=== PATIENT | male | born 1990 | race African-American/Black ===

== ENCOUNTER 2018-10-21 16:05 | Emergency (ER) | payer SELFPAY ==
[~2018-10-21] VITALS: Ht 177.8 cm; Wt 90.7 kg
[2018-10-21 16:33] VITALS: BP 186/88
[2018-10-21] MEDS ORDERED: ALBU2.5V8 INH (16:47)
[2018-10-21] MEDS ORDERED: PRED15SO3 PO (16:47)
[2018-10-21] MEDS ORDERED: GUAI180L4 PO (16:47)
--- NOTE | 2018-10-21 16:47 | PHYS DOC ---
Past Medical History Past Medical History: No Pertinent History Past Surgical History: No Surgical History Alcohol Use: None Drug Use: None Adult General Chief Complaint Chief Complaint: COUGH HPI HPI Patient is a 27 year old male who presents to the ED today complaining of a productive cough for 3 days. Patient denies any fever. Denies any nasal congestion. Review of Systems Review of Systems Constitutional: Denies fever or chills [] Eyes: Denies change in visual acuity, redness, or eye pain [] HENT: Denies nasal congestion or sore throat [] Respiratory: Reports: Denies shortness of breath [] Cardiovascular: No additional information not addressed in HPI [] GI: Denies abdominal pain, nausea, vomiting, bloody stools or diarrhea [] : Denies dysuria or hematuria [] Musculoskeletal: Denies back pain or joint pain [] Integument: Denies rash or skin lesions [] Neurologic: Denies headache, focal weakness or sensory changes [] Endocrine: Denies polyuria or polydipsia [] All other systems were reviewed and found to be within normal limits, except as documented in this note. Allergies Allergies Allergies Coded Allergies Type Severity Reaction Last Updated Verified No Known Drug Allergies 10/17/13 No Physical Exam Physical Exam Constitutional: Well developed, well nourished, no acute distress, non-toxic appearance. [] HENT: Normocephalic, atraumatic, bilateral external ears normal, oropharynx moist, no oral exudates, nose normal. [] Eyes: PERRLA, EOMI, conjunctiva normal, no discharge. [] Neck: Normal range of motion, no tenderness, supple, no stridor. [] Cardiovascular:Heart rate regular rhythm, no murmur [] Lungs & Thorax: Bilateral breath sounds clear to auscultation [] Abdomen: Bowel sounds normal, soft, no tenderness, no masses, no pulsatile masses. [] Skin: Warm, dry, no erythema, no rash. [] Back: No tenderness, no CVA tenderness. [] Extremities: No tenderness, no cyanosis, no clubbing, ROM intact, no edema. [] Neurologic: Alert and oriented X 3, normal motor function, normal sensory function, no focal deficits noted. [] Psychologic: Affect normal, judgement normal, mood normal. [] EKG EKG [] Radiology/Procedures Radiology/Procedures [] Course & Med Decision Making Course & Med Decision Making Pertinent Labs and Imaging studies reviewed. (See chart for details) This is a 27-year-old male patient presenting to the ED today with bronchitis. He was asking for liquid medication, he states he cannot take any liquids. He is currently on probation for drug use. Will be discharged with Delsym, prednisone and albuterol inhaler. Follow-up with PCP in one week. Dragon Disclaimer Dragon Disclaimer This electronic medical record was generated, in whole or in part, using a voice recognition dictation system. Departure Departure Impression: Primary Impression: Acute bronchitis Disposition: HOME, SELF-CARE Condition: STABLE Referrals: NO PCP (PCP) Follow-up with your doctor in one week Patient Instructions: Acute Bronchitis, [id number] Additional Instructions: You were evaluated in the emergency for acute bronchitis use the medicines ordered as prescribed. Follow-up with your doctor in one week. Scripts Prednisolone Sod Phosphate (PREDNISOLONE SODIUM PHOSPHATE) 15 Mg/5 Ml Solution 20 ML PO DAILY, #100 ML Prov: RAYMOND ECHOLS APRN 10/21/18 Guaifenesin/Dextromethorphan (Delsym Cough+Chest Cngst Dm Lq) 180 Ml Liquid 5 ML PO Q6HRS, #180 LIQUID Prov: RAYMOND ECHOLS APRN 10/21/18 Albuterol Sulfate (PROAIR HFA INHALER) 8.5 Gm Hfa.aer.ad 1 PUFF INH PRN Q6HRS PRN for SHORTNESS OF BREATH, #1 INHALER 0 Refills Prov: RAYMOND ECHOLS APRN 10/21/18 Problem Qualifiers Primary Impression: Acute bronchitis Bronchitis organism: unspecified organism Qualified Codes: J20.9 - Acute bronchitis, unspecified RAYMOND ECHOLS APRN Oct 21, 2018 16:47
== END 2018-10-21 17:03 | disposition home or self-care (01) ==
LOC: ER 16:05
DX: J20.9 Acute bronchitis, unspecified (principal)
CPT/HCPCS: 96361; 96372; 96374; 99283; 99284-25

== ENCOUNTER 2018-11-17 09:56 | Emergency (ER) | payer SELFPAY ==
[~2018-11-17] VITALS: Ht 180.3 cm; Wt 95.3 kg
[~2018-11-17 09:56] MED LIST: ALBU2.5V8 INH; GUAI180L4 PO; PRED15SO3 PO
[2018-11-17 10:54] VITALS: BP 156/96
--- NOTE | 2018-11-17 11:36 | RAD ---
Three-view right foot study Clinical indications: Pain involving the third digit. Patient stubbed toe. FINDINGS: No acute fracture or dislocation or lytic process is seen. IMPRESSION: No acute fracture. Electronically signed by: Reji Santana MD (11/17/2018 11:34 AM) [id number]
[2018-11-17] MEDS ORDERED: DICL50TA2 PO (12:27)
[2018-11-17] MEDS ORDERED: NYST15PO9 TP (12:27)
[2018-11-17] MEDS ORDERED: GABA600T7 PO (12:27)
--- NOTE | 2018-11-17 12:27 | PHYS DOC ---
Past Medical History Past Medical History: No Pertinent History Past Surgical History: No Surgical History Additional Information: BLACK & MILDS Alcohol Use: None Drug Use: None Adult General Chief Complaint Chief Complaint: INSECT BITE HPI HPI Patient is a 27 year old male patient who presents to the ED today with right third toe pain that began this morning when he woke up. Patient believes he could've stubbed his toe on something yesterday and slipped on it. He also believes he could've been bit by a spider though he never saw any spiders bit him. He describes the pain as throbbing worse on touching the toe. Denies any relieving factors. Review of Systems Review of Systems Constitutional: Denies fever or chills [] Musculoskeletal: Reports right third toe pain Integument: Denies rash or skin lesions [] Neurologic: Denies headache, focal weakness or sensory changes [] All other systems were reviewed and found to be within normal limits, except as documented in this note. Allergies Allergies Allergies Coded Allergies Type Severity Reaction Last Updated Verified No Known Drug Allergies 10/17/13 No Physical Exam Physical Exam Constitutional: Well developed, well nourished, no acute distress, non-toxic appearance. [] Skin: Warm, dry, no erythema, no rash. [] Back: No tenderness, no CVA tenderness. [] Extremities: No signs of trauma noted to the right third toe. Right third toe and all the toes with no obvious deformity. There is mild amount of ongoing infection in between his toes worse on the webspace between the right third toe.+2 right pedal pulse. Neurologic: Alert and oriented X 3, normal motor function, normal sensory function, no focal deficits noted. [] Psychologic: Affect normal, judgement normal, mood normal. [] Current Patient Data Vital Signs Vital Signs Date Time Temp Pulse Resp B/P (MAP) Pulse Ox O2 Delivery O2 Flow Rate FiO2 11/17/18 10:54 98.4 71 18 156/96 (116) 98 Room Air 98.4 EKG EKG [] Radiology/Procedures Radiology/Procedures []PROCEDURE: FOOT RIGHT 3V Three-view right foot study Clinical indications: Pain involving the third digit. Patient stubbed toe. FINDINGS: No acute fracture or dislocation or lytic process is seen. IMPRESSION: No acute fracture. Electronically signed by: Rajwinder Santana MD (11/17/2018 11:34 AM) [id number] DICTATED and SIGNED BY: RAJWINDER SANTANA MD DATE: 11/17/18 1134 Course & Med Decision Making Course & Med Decision Making Pertinent Labs and Imaging studies reviewed. (See chart for details) This is a 27-year-old male patient presenting to the ED today complaining of pain to the right third toe, no obvious known injury. He has his own hypothesis on what could be causing the pain, see history of present illness. On arrival to the ED x-ray was obtained of the right foot, no acute findings noted. Patient noted to have quite a bit of fungal infection between his toes. He was discharged with nystatin. Follow-up with PCP in 1-2 weeks. Dragon Disclaimer Dragon Disclaimer This electronic medical record was generated, in whole or in part, using a voice recognition dictation system. Departure Departure Impression: Primary Impression: Athlete's foot on right Disposition: 01 HOME, SELF-CARE Condition: STABLE Referrals: NO PCP (PCP) follow up in one week Patient Instructions: Athlete's Foot, [id number] Additional Instructions: You were evaluated in the emergency room and noted to have fungal infection between your toes. Use the medication prescribed as ordered. Consider applying this medication in your shoes. Keep your feet out of the shoes when you are home to allow the toes to air out. Your foot x-ray was negative for any acute findings. Follow-up with your own doctor in 1-2 weeks. Scripts Diclofenac Potassium (DICLOFENAC POTASSIUM) 50 Mg Tablet 1 TAB PO BID, #20 TAB 0 Refills Prov: RAYMOND ECHOLS APRN 11/17/18 Gabapentin (GABAPENTIN) 600 Mg Tablet 600 MG PO TID for NEUROGENIC PAIN, #30 TAB Prov: RAYMOND ECHOLS APRN 11/17/18 Nystatin (NYSTATIN) 15 Gm Powder 1 SARA TP BID, #1 BOTTLE Prov: RAYMOND ECHOLS APRN 11/17/18 RAYMOND ECHOLS APRN Nov 17, 2018 12:27
== END 2018-11-17 12:32 | disposition home or self-care (01) ==
LOC: ER 09:56
DX: B35.3 Tinea pedis (principal)
CPT/HCPCS: 73630; 99284

== ENCOUNTER 2018-11-19 12:09 | Emergency (ER) | payer SELFPAY ==
[~2018-11-19] VITALS: Ht 180.3 cm; Wt 95.3 kg
[~2018-11-19 12:09] MED LIST changes: +DICL50TA2 PO; +GABA600T7 PO; +NYST15PO9 TP
[2018-11-19 12:45] VITALS: BP 149/84
[2018-11-19] MEDS ORDERED: SMZ/TMP 800/160MG TABLET. PO ONE (13:15)
[2018-11-19] MEDS ORDERED: HYDROcodone/APAP 5/325MG 1 TAB TABLET PO ONE (13:15)
[2018-11-19] MEDS ORDERED: LIDOCAINE 1% PF 2 ML VIAL. INJ ONE (13:15)
[2018-11-19] MEDS ORDERED: DIPHTH,PERTUSS(ACELL),TET TOX 0.5 ML DISP.SYRIN. VAX IM ONE (13:15)
--- NOTE | 2018-11-19 13:25 | PHYS DOC ---
Past Medical History Past Medical History: No Pertinent History Past Surgical History: No Surgical History Alcohol Use: None Drug Use: None Adult General Chief Complaint Chief Complaint: TOE PROBLEM HPI HPI Patient is a 27 year old male who presents with infected right third toe, patient states he had a fungal infection to the area that has progressed into an abscess. He was in the ED 2 days ago and had an x-ray of the right foot which was negative for any acute findings. At that point he had athletes foot and was discharged with nystatin powder. He states the athletes foot has turned into a bacterial infection. He states he has pus draining out of the area. Denies any fever. Denies any history of diabetes. Review of Systems Review of Systems Constitutional: Denies fever or chills [] Musculoskeletal: Denies back pain or joint pain [] Integument: Reports infected third toe. Neurologic: Denies headache, focal weakness or sensory changes [] All other systems were reviewed and found to be within normal limits, except as documented in this note. Current Medications Current Medications Current Medications Medications (Trade) Dose Ordered Sig/Festus Start Time Stop Time Status Last Admin Dose Admin Acetaminophen/ Hydrocodone Bitart (Lortab 5/325) 2 tab 1X ONCE 11/19/18 13:15 11/19/18 13:16 DC Diphtheria/ Tetanus/Acell Pertussis (Boostrix) 0.5 ml ONCE ONCE 11/19/18 13:15 11/19/18 13:16 DC Lidocaine HCl (Xylocaine-Mpf 1% 2ml Vial) 2 ml 1X ONCE 11/19/18 13:15 11/19/18 13:16 DC Trimethoprim/ Sulfamethoxazole (Bactrim Ds) 1 tab 1X ONCE 11/19/18 13:15 11/19/18 13:16 DC Allergies Allergies Allergies Coded Allergies Type Severity Reaction Last Updated Verified No Known Drug Allergies 10/17/13 No Physical Exam Physical Exam Constitutional: Well developed, well nourished, no acute distress, non-toxic appearance. [] Skin: Medial aspect of right third toe with an open wound draining yellow purulent material. The wound is roughly 0.5 cm x 0.5 cm on the proximal aspect of the wound. I went ahead and expressed moderate amount of pus from this region. +2 right pedal pulse. Cap refill less than 2 seconds the right toes. Back: No tenderness, no CVA tenderness. [] Extremities: No tenderness, no cyanosis, no clubbing, ROM intact, no edema. [] Neurologic: Alert and oriented X 3, normal motor function, normal sensory function, no focal deficits noted. [] Psychologic: Affect normal, judgement normal, mood normal. [] Current Patient Data Vital Signs Vital Signs Date Time Temp Pulse Resp B/P (MAP) Pulse Ox O2 Delivery O2 Flow Rate FiO2 11/19/18 12:45 98.5 76 16 149/84 (105) 96 Room Air 98.5 EKG EKG [] Radiology/Procedures Radiology/Procedures [] Course & Med Decision Making Course & Med Decision Making Pertinent Labs and Imaging studies reviewed. (See chart for details) This is a 27-year-old male patient who presents to the ED today with an abscess on the right medial third toe, patient was in the ED 2 days ago with a fungal infection/athlete's foot around the same toe, was discharged with nystatin powder. The infection has progressed from fungal infection to bacteria and is currently draining. I went ahead and expressed moderate amount of pus from this region. He had a negative foot x-rays 2 days ago. Patient was given Rocephin IM 1 g, Boostrix, and started on Bactrim. Patient will be discharged Bactrim for 10 days. Wound care instructions and emphasized. We will check his blood sugar before he leaves to rule out diabetes. Encouraged follow-up with the PCP. Kristin Disclaimer Dragon Disclaimer This electronic medical record was generated, in whole or in part, using a voice recognition dictation system. Departure Departure Impression: Primary Impression: Abscess of toe of right foot Disposition: 01 HOME, SELF-CARE Condition: STABLE Referrals: NO PCP (PCP) follow up with your doctor next week Patient Instructions: Abscess, Care After Additional Instructions: You were evaluated in the emergency room for an abscess on the right third toe, we drained at this region. Keep it clean and dry. Please complete your oral antibiotics. Stop using the nystatin powder to this region until the infection has completely cleared out. Consider soaking your right foot in warm water with Epsom salt 2-3 times a day Scripts Sulfamethoxazole/Trimethoprim (BACTRIM DS TABLET) 1 Each Tablet 1 TAB PO BID, #20 TAB Prov: RAYMOND ECHOLS APRN 11/19/18 Hydrocodone/Apap 5-325 (NORCO 5-325 TABLET) 1 Each Tablet 1 TAB PO Q6HRS, #14 TAB Prov: RAYMOND ECHOLS APRN 11/19/18 RAYMOND ECHOLS APRN Nov 19, 2018 13:25
[2018-11-19] MEDS ORDERED: HYDR-3164 PO (13:28)
[2018-11-19] MEDS ORDERED: SULF1TAB24 PO (13:28)
== END 2018-11-19 13:57 | disposition home or self-care (01) ==
LOC: ER 12:09
DX: S91.104A Unspecified open wound of right lesser toe(s) without damage to nail, initial encounter (principal); L02.611 Cutaneous abscess of right foot; X58.XXXA Exposure to other specified factors, initial encounter; Y93.89 Activity, other specified; Y92.89 Other specified places as the place of occurrence of the external cause; Y99.8 Other external cause status
CPT/HCPCS: 82962; 90471; 90715; 99283